=== PATIENT | female | born 1960 | race Caucasian/White ===

== ENCOUNTER → 2016-07-17 | Outpatient (CLI) | payer BC | LOC: KOH-I 10:48 | DX: M25.512 Pain in left shoulder (principal) | CPT/HCPCS: 73030 ==

== ENCOUNTER 2020-07-28 09:29 | Emergency (ER) | payer OTHER ==
[2020-07-28 10:37] LABS: HEMOGLOBIN 13.8 gm/dl (12.3-15.3); RED BLOOD COUNT 4.33 M/UL (4.00-5.10); WHITE BLOOD COUNT 4.8 K/UL (4.5-11.0)
[2020-07-28 10:57] LABS: BUN/CREATININE RATIO 16 (0-10)
[2020-07-28] MEDS ORDERED: FLOMAX 0.4 MG0.4 MG PO (12:32)
[2020-07-28] MEDS ORDERED: TORADOL 10 MG T10 MG PO (12:32)
[2020-07-28] MEDS ORDERED: CEFUROXIME500 MG PO (12:32)
[2020-07-28] MEDS ORDERED: ONDANSETRON ODT4 MG SL (12:32)
== END 2020-07-28 12:47 | disposition home or self-care (01) ==
LOC: ER1 09:29
PROVIDERS: Physician Assistant
DX: N13.2 Hydronephrosis with renal and ureteral calculous obstruction (principal); K76.0 Fatty (change of) liver, not elsewhere classified; R82.81 Pyuria; Z87.442 Personal history of urinary calculi
CPT/HCPCS: 80053; 81001; 85025; 87086; 96374; 96375; 99284; J1885; J2405; J7030

== ENCOUNTER 2020-11-13 09:05 | Emergency (ER) | payer OTHER ==
[~2020-11-13 09:05] MED LIST: CEFUROXIME500 MG PO; FLOMAX 0.4 MG0.4 MG PO; ONDANSETRON ODT4 MG SL; TORADOL 10 MG T10 MG PO
[2020-11-13 11:18] LABS: HEMOGLOBIN 13.1 gm/dl (12.3-15.3); RED BLOOD COUNT 4.09 M/UL (4.00-5.10); WHITE BLOOD COUNT 6.7 K/UL (4.5-11.0)
[2020-11-13 12:40] LABS: BUN/CREATININE RATIO 16 (0-10)
[2020-11-13] MEDS ORDERED: FLOMAX 0.4 MG0.4 MG PO (13:23)
[2020-11-13] MEDS ORDERED: PERCOCET 5-3251 EACH PO (13:42)
== END 2020-11-13 14:20 | disposition home or self-care (01) ==
LOC: ER1 09:05
PROVIDERS: Physician Assistant
DX: N13.2 Hydronephrosis with renal and ureteral calculous obstruction (principal); Z79.899 Other long term (current) drug therapy
CPT/HCPCS: 80053; 81001; 83690; 85025; 87077; 87086; 87186; 96374; 96375; 99284; J1885; J2270; J2405; J7030

== ENCOUNTER → 2021-08-16 | Outpatient (CLI) | payer OTHER ==
[~2021-08-16] MED LIST changes: +PERCOCET 5-3251 EACH PO
== END ==
LOC: KOH-I 09:24
DX: N13.2 Hydronephrosis with renal and ureteral calculous obstruction (principal); I89.0 Lymphedema, not elsewhere classified; K57.90 Diverticulosis of intestine, part unspecified, without perforation or abscess without bleeding
CPT/HCPCS: 74176